=== PATIENT | female | born 1955 | race Caucasian/White ===

== ENCOUNTER 2020-06-27 08:45 | Day surgery (SDC) | payer MEDICARE ==
[2020-06-27] MEDS ORDERED: Dextrose 5%-Lactated Ringers 1,000 ML IV SCH (09:15)
[2020-06-27] MEDS ORDERED: Propofol 200 MG/20 ML SDV ONE (13:08)
[2020-06-27] MEDS ORDERED: Midazolam 1 MG/ML 2 ML SDV ONE (13:08)
[2020-06-27] MEDS ORDERED: fentaNYL 100 MCG/2 ML SDV ONE (13:08)
--- NOTE | 2020-07-12 13:16 | OR ---
DATE OF PROCEDURE: 06/27/2020 SURGEON: Yrn King MD PREOPERATIVE DIAGNOSIS: History of colon polyps. POSTOPERATIVE DIAGNOSES: 1. Possible recurrent polyp versus prominent fold of ascending colon. 2. Minimal left colonic diverticulosis. OPERATIVE PROCEDURE: Flexible colonoscopy with polypectomy by snare technique. ANESTHESIA: IV sedation. INDICATIONS FOR PROCEDURE: A 64-year-old female presenting for followup screening colonoscopy. Does have a personal history of colon polyps removed previously. The plan is to proceed with a colonoscopy with biopsies and/or polypectomy as indicated. Potential risks including bleeding and perforation were discussed, and the patient wishes to proceed. DETAILS OF PROCEDURE: The patient was taken to the operating room, placed in a left lateral decubitus position. IV sedation was administered after which the initial digital rectal exam was performed, which was unremarkable. Colonoscope was then passed into the rectum with retroflexion revealing uncomplicated hemorrhoidal columns. Scope was then eventually passed to the level of the cecum. The prep was fairly good. There was only a small amount of liquid stool that was present. The patient had some very minimal uncomplicated left diverticulosis. Otherwise, the patient had a small possible recurrent polyp in the ascending colon. This may end up being simply a prominent fold in that area, but it did have some discoloration of the mucosal surface suggestive of possible polyp formation. This was encircled at its base and removed by means of cautery snare technique and sent for histologic evaluation. Good hemostasis at the polypectomy site was seen. Scope was then withdrawn. No additional abnormalities were noted, and the procedure was then concluded. If the present removed tissue is adenomatous in nature, then the patient should undergo a followup colonoscopy in 2 years. If it is non-premalignant tissue and/or some normal variant, the next colonoscopy, given the personal history of colon polyps, should be in 5 years. We will contact the patient regarding those findings and recommendations. Yrn King MD /[id number]
== END 2020-06-27 13:00 | disposition home or self-care (01) ==
LOC: JP.SDS 08:45
PROVIDERS: ATTEND Surgery
DX: Z12.11 Encounter for screening for malignant neoplasm of colon (principal); K63.5 Polyp of colon; K57.30 Diverticulosis of large intestine without perforation or abscess without bleeding; K64.9 Unspecified hemorrhoids
CPT/HCPCS: 45385; 88305; J2250; J2704; J3010; J7121